=== PATIENT | male | born 1970 | race Caucasian/White ===

== ENCOUNTER 2019-05-10 14:55 | Emergency (ER) | payer OTHER ==
[~2019-05-10] VITALS: Ht 162.5 cm; Wt 124.3 kg
== END 2019-05-10 15:34 | disposition home or self-care (01) ==
LOC: ED 14:55
DX: S61.215A Laceration without foreign body of left ring finger without damage to nail, initial encounter (principal); W20.8XXA Other cause of strike by thrown, projected or falling object, initial encounter; Y93.89 Activity, other specified; Y92.89 Other specified places as the place of occurrence of the external cause; Y99.0 Civilian activity done for income or pay

== ENCOUNTER 2021-01-08 22:49 | Emergency (ER) | payer OTHER ==
[~2021-01-08] VITALS: Ht 177.8 cm; Wt 127.5 kg
[2021-01-08 23:52] LABS: BASO # 0.1 10*3/uL (0.0-0.1); BASO % 0.6 % (0.0-1.0); EOS # 0.5 10*3/uL (0.0-0.4); EOS % 4.4 % (1.0-4.0); HEMATOCRIT 39.3 % (42.0-52.0); LYMPH # 3.6 10*3/uL (1.3-4.4); LYMPH % 30.4 % (27.0-41.0); MEAN CELL VOLUME 82.2 fl (80.0-94.0); MEAN CORPUSCULAR HGB 25.5 pg (27.0-31.0); MEAN PLATELET VOLUME 9.2 fl (9.6-12.3); MONO # 1.1 10*3/uL (0.1-1.0); MONO % 9.1 % (3.0-9.0); NEUT # 6.4 10*3/uL (2.3-7.9); NEUT % 55.1 % (47.0-73.0); PLATELET COUNT AUTOMATED 394 10*3/uL (130-400); RED BLOOD COUNT 4.78 10*6/uL (4.50-5.90); RED CELL DISTRI WIDTH 14.2 % (0-14.5); WHITE BLOOD COUNT 11.7 10*3/uL (4.8-10.8)
[2021-01-09 00:18] LABS: ALBUMIN 3.8 gm/dl (3.1-4.5); ALKALINE PHOSPHATASE 74 U/L (45-117); BUN 21 mg/dl (7-24); CHLORIDE 105 mmol/L (98-107); CREATININE 0.98 mg/dL (0.70-1.30); POTASSIUM 4.1 mmol/L (3.5-5.1); SGOT/AST 18 IU/L (3-35); SGPT/ALT 36 U/L (12-78); SODIUM 133 mmol/L (136-145); TOTAL PROTEIN 7.3 gm/dL (6.4-8.2); URIC ACID 4.7 mg/dL (3.5-7.2)
[2021-01-09 00:28] LABS: TROPONIN I < 0.015 ng/ml (<0.045)
== END 2021-01-09 02:26 | disposition home or self-care (01) ==
LOC: ED 22:49
PROVIDERS: Emergency Medicine
DX: M77.8 Other enthesopathies, not elsewhere classified (principal); M79.602 Pain in left arm